=== PATIENT | male | born 1985 | race Caucasian/White ===

== ENCOUNTER 2018-11-25 23:42 | Emergency (ER) | payer OTHER ==
[~2018-11-25] VITALS: Ht 172.7 cm; Wt 122.7 kg
[2018-11-25] MEDS ORDERED: VALT500T PO (23:52)
[2018-11-26] MEDS ORDERED: BICILLIN L-A 2,400,000 UNIT/4 ML SYRINGE (J0561-24)PENICILLIN G BENZATINE IM ONE (02:45)
[2018-11-26] MEDS ORDERED: AZITHROMYCIN 250 MG TAB PO ONE (02:45)
[2018-11-26 03:16] LABS: CHLAMYDIA DNA AMPLIFICATION NEGATIVE (NEGATIVE); GC DNA AMPLIFICATION NEGATIVE (NEGATIVE)
[2018-11-26] MEDS ORDERED: KEFL500C17 PO (04:14)
[2018-11-26] MEDS ORDERED: NORCO 5/325MG TABLET (BULK FOR ED) PO ONE (04:15)
[2018-11-26 04:34] VITALS: BP 151/74
[2018-11-26 11:33] LABS: HEPATITIS A ANTIBODY IGM NEGATIVE (NEGATIVE); HEPATITIS B CORE ANTIBODY IGM NEGATIVE (NEGATIVE); HEPATITIS B SURFACE ANTIGEN NEGATIVE (NEGATIVE); HEPATITIS C VIRUS ABY INDEX 0.2 INDEX (<0.8); HIV 1&2 SCREEN CENTAUR NEGATIVE (NEGATIVE)
== END 2018-11-26 04:35 | disposition home or self-care (01) ==
LOC: M ED 23:42
DX: N48.5 Ulcer of penis (principal)
CPT/HCPCS: 86705; 86709; 86780; 86803; 87070; 87205; 87252; 87340; 87389; 87491; 87591; 96372; 99283; J0561

== ENCOUNTER → 2023-05-20 | Outpatient (REF) | payer BC ==
[~2023-05-20] MED LIST: KEFL500C17 PO; VALT500T PO
[2023-05-20 18:17] LABS: APPEARANCE, URINE CLEAR (CLEAR); BACTERIA, URINE AUTO NEGATIVE (NEGATIVE); BILIRUBIN, URINE AUTO NEGATIVE (NEGATIVE); BLOOD, URINE BLOOD 1+ (NEGATIVE); COLOR, URINE STRAW (YELLOW); GLUCOSE, URINE (UA) AUTO NEGATIVE (NEGATIVE); KETONE, URINE AUTO NEGATIVE (NEGATIVE); LEUKOCYTE ESTERASE, URINE AUTO NEGATIVE (NEGATIVE); NITRITE, URINE AUTO NEGATIVE (NEGATIVE); PROTEIN, URINE AUTO NEGATIVE (NEGATIVE); RBC, URINE AUTO 1 /HPF (0-3); SPECIFIC GRAVITY URINE AUTO 1.011 (1.002-1.035); SQUAMOUS EPITHELIAL CELL UR AU 0 /HPF (0-6); UROBILINOGEN, URINE AUTO 0.2 mg/dL (0.0-2.0); WBC, URINE AUTO 1 /HPF (0-3)
== END ==
LOC: M SMT 16:53
PROVIDERS: ATTEND Physician Assistant
DX: R31.21 Asymptomatic microscopic hematuria (principal)

== ENCOUNTER → 2023-06-05 | Outpatient (CLI) | payer BC | LOC: M RAD 16:04 | PROVIDERS: ATTEND Physician Assistant | DX: N50.82 Scrotal pain (principal) ==